=== PATIENT | male | born 1985 | race Caucasian/White ===

== ENCOUNTER 2022-10-12 20:44 | Inpatient (IN) | payer BC, SELFPAY ==
[~2022-10-12] VITALS: Ht 190.5 cm; Wt 115.2 kg
[2022-10-12] MEDS ORDERED: NS 1,000 ML IV ONE (21:05)
[2022-10-12 21:16] LABS: BASO # 0.1 10^3/uL (0.0-0.2); EOS % 0.5 % (0.0-3.0); HEMATOCRIT 44.8 % (42.0-52.0); HEMOGLOBIN 15.4 g/dl (13.5-17.5); LYMPH # 1.2 10^3/uL (1.5-5.0); LYMPH % 14.9 % (24.0-44.0); MEAN CORPUSCULAR HEMOGLOBIN 34.4 pg (27.0-33.0); MEAN CORPUSCULAR HGB CONC 34.4 g/dl (32.0-36.5); MONO # 0.9 10^3/uL (0.0-0.8); MONO % 11.4 % (2.0-8.0); NEUTROPHILS # 5.8 10^3/uL (1.5-8.5); NEUTROPHILS % 71.7 % (36.0-66.0); PLATELET COUNT, AUTOMATED 203 10^3/uL (150-450); RED BLOOD COUNT 4.48 10^6/uL (4.30-6.10); WHITE BLOOD COUNT 8.1 10^3/uL (4.0-10.0)
[2022-10-12 21:18] LABS: VENOUS BASE EXCESS -1.5 (-2.0-2.0); VENOUS HCO3 23.8 MEQ/L (23.0-27.0); VENOUS O2 SATURATION 66.5 % (60.0-80.0); VENOUS PARTIAL PRESSURE CO2 42.2 mmHg (38.0-50.0); VENOUS PARTIAL PRESSURE O2 35.4 mmHg (30.0-50.0); VENOUS STANDARD HCO3 22.4 MEQ/L; VENOUS TOTAL CO2 25.1 MEQ/L (24.0-28.0)
[2022-10-12 21:35] LABS: ALBUMIN 4.1 G/DL (3.2-5.2); ALKALINE PHOSPHATASE 128 U/L (46-116); ALT/SGPT 144 U/L (7.0-40); AST/SGOT 340 U/L (<34); BILIRUBIN,DIRECT 0.7 MG/DL (<0.4); BILIRUBIN,TOTAL 1.3 MG/DL (0.3-1.2); BLOOD UREA NITROGEN 8 MG/DL (9-23); CALCIUM LEVEL 9.7 MG/DL (8.5-10.1); CARBON DIOXIDE LEVEL 24 MMOL/L (20-31); CHLORIDE LEVEL 93 MMOL/L (98-107); CREATININE FOR GFR 1.16 MG/DL (0.70-1.30); GLOMERULAR FILTRATION RATE > 60.0 (>60); GLUCOSE, FASTING 83 MG/DL (60-100); PHOSPHORUS LEVEL 1.9 MG/DL (2.5-4.9); POTASSIUM SERUM 3.2 MMOL/L (3.5-5.1); SODIUM LEVEL 137 MMOL/L (136-145); TOTAL PROTEIN 7.7 G/DL (5.7-8.2)
[2022-10-12] MEDS ORDERED: LR 1,000 ML IV ONE (21:45)
[2022-10-12 21:53] LABS: MAGNESIUM LEVEL 1.6 MG/DL (1.8-2.4)
[2022-10-12] MEDS ORDERED: NEUTRA-PHOS 1.5 GM PACKET PO STA (22:07)
[2022-10-12] MEDS ORDERED: MAG SULF 1GM/100ML (MAG RUN) 1 GM in IV 1 EA IV ONE ×2 (22:10→23:00)
[2022-10-12] MEDS ORDERED: POTASSIUM CHLORIDE 10MEQ SR TABLET PO ONE (22:10)
[2022-10-12] MEDS ORDERED: KETOROLAC 30 MG/ML 1ML VIAL IV ONE (22:25)
[2022-10-12 22:44] LABS: HEPATITIS B SURFACE ANTIGEN NEGATIVE (NEGATIVE)
[2022-10-12 23:04] LABS: HEPATITIS B CORE ANTIBODY IGM NEGATIVE (NEGATIVE); HEPATITIS C VIRUS ABY INDEX 0.1 INDEX (<0.8)
[2022-10-12 23:05] LABS: RSV AMPLIFICATION NEGATIVE (NEGATIVE)
[2022-10-12] MEDS ORDERED: hydrALAZINE 20MG/ML 1ML VIAL IV STA (23:31)
[2022-10-12] MEDS ORDERED: MORPHINE 4 MG/ML 1ML VIAL IV ONE (23:45)
[2022-10-13] VITALS (62 sets, daily range): BP systolic 101–135; BP diastolic 56–82
[2022-10-13] MEDS ORDERED: NS 1,000 ML IV ONE ×2 (00:45→03:15)
[2022-10-13 01:30] LABS: APPEARANCE, URINE CLEAR (CLEAR); BACTERIA, URINE AUTO NEGATIVE (NEGATIVE); BILIRUBIN, URINE AUTO NEGATIVE (NEGATIVE); BLOOD, URINE BLOOD 2+ (NEGATIVE); COLOR, URINE YELLOW (YELLOW); GLUCOSE, URINE (UA) AUTO NEGATIVE (NEGATIVE); KETONE, URINE AUTO 1+ mg/dL (NEGATIVE); LEUKOCYTE ESTERASE, URINE AUTO NEGATIVE (NEGATIVE); MUCUS, URINE SMALL (NEGATIVE); NITRITE, URINE AUTO NEGATIVE (NEGATIVE); PROTEIN, URINE AUTO 2+ mg/dL (NEGATIVE); RBC, URINE AUTO 0 /HPF (0-3); SPECIFIC GRAVITY URINE AUTO 1.015 (1.002-1.035); SQUAMOUS EPITHELIAL CELL UR AU 0 /HPF (0-6); WBC, URINE AUTO 6 /HPF (0-3)
[2022-10-13 01:41] LABS: AMPHETAMINES LEVEL URINE NEGATIVE (NEGATIVE); BARBITURATES URINE NEGATIVE (NEGATIVE); CANNABINOIDS URINE NEGATIVE (NEGATIVE); METHADONE URINE NEGATIVE (NEGATIVE); PHENCYCLIDINE URINE NEGATIVE (NEGATIVE)
[2022-10-13 01:46] LABS: BENZODIAZEPINES URINE POSITIVE (NEGATIVE); COCAINE METABOLITE URINE POSITIVE (NEGATIVE); OPIATES URINE POSITIVE (NEGATIVE)
[2022-10-13] MEDS ORDERED: LORazepam 2 MG/ML 1ML VIAL IM STA (01:47)
[2022-10-13] MEDS ORDERED: MIDAZOLAM INJ 2MG/2ML VIAL IV STA ×2 (01:50→03:20)
[2022-10-13] MEDS ORDERED: levETIRAcetam INJection 1,500 MG in D5W 100 ML IV ONE (01:50)
[2022-10-13] MEDS ORDERED: MIDAZOLAM INJ 2MG/2ML VIAL As Ordered ONE (01:51)
[2022-10-13] MEDS ORDERED: TADA20TA PO (01:56)
[2022-10-13] MEDS ORDERED: VYVA40CA3 PO (01:56)
[2022-10-13] MEDS ORDERED: BUPR150T12 PO (01:56)
[2022-10-13] MEDS ORDERED: ETOMIDATE INJ 20MG/10ML VIAL IV STA (02:00)
[2022-10-13] MEDS ORDERED: ROCURONIUM BROMIDE 50MG/5ML VIAL IV SCH (02:00)
[2022-10-13] MEDS ORDERED: HOME MED LIST COMPLETE! XX SCH (02:00)
[2022-10-13] MEDS ORDERED: MIDAZOLAM 100MG/100ML-0.9%NACL 100 MG in IV 1 EA IV SCH (02:05)
[2022-10-13] MEDS ORDERED: VERAPAMIL 5MG/2ML VIAL IV STA (02:10)
[2022-10-13] MEDS: MIDAZOLAM 100MG/100ML-0.9%NACL 100 MG in IV 1 EA IV SCH ×2 (02:13→13:36)
[2022-10-13] MEDS: propofoL 1,000 MG in IV 1 EA IV SCH ×7 (02:56→18:03)
[2022-10-13] MEDS ORDERED: diltiaZEM 125 MG in NS 100 ML IV SCH ×4 (03:00→10:00)
[2022-10-13 03:02] LABS: ABG HCO3 19.4 MEQ/L (22.0-26.0); ABG PARTIAL PRESSURE CO2 46.5 mmHg (35.0-45.0); ABG PARTIAL PRESSURE O2 127.7 mmHg (75.0-100.0); ABG STANDARD HCO3 18.2 MEQ/L (22.0-26.0); ABG TOTAL CO2 20.9 MEQ/L (22.0-29.0)
[2022-10-13 03:05] LABS: ABG pH (ARTERIAL) 7.239 UNITS (7.350-7.450)
[2022-10-13] MEDS ORDERED: LORazepam 2 MG/ML 1ML VIAL IV STA (03:19)
[2022-10-13] MEDS ORDERED: DIGOXIN INJ 0.5 MG/2 ML AMP IV STA (03:32)
[2022-10-13] MEDS ORDERED: FENTANYL DRIP LOCK BOX KEY 1 EACH XX PRN (03:50)
[2022-10-13] MEDS ORDERED: PHENYTOIN INJ 250MG/5ML VIAL As Ordered ONE ×2 (03:54→03:55)
[2022-10-13] MEDS ORDERED: PHENYTOIN INJection 2,000 MG in NS 250 ML IV ONE (04:00)
[2022-10-13] MEDS ORDERED: ADENOSINE 6MG 2ML INJECTION IV STA ×2 (04:20)
[2022-10-13] MEDS ORDERED: PHENYTOIN INJection 1,000 MG in NS 100 ML IV ONE ×2 (04:25→05:00)
[2022-10-13 04:43] LABS: HEMATOCRIT 38.9 % (42.0-52.0); HEMOGLOBIN 13.6 g/dl (13.5-17.5); MEAN CORPUSCULAR HEMOGLOBIN 34.3 pg (27.0-33.0); PLATELET COUNT, AUTOMATED 156 10^3/uL (150-450); RED BLOOD COUNT 3.97 10^6/uL (4.30-6.10); WHITE BLOOD COUNT 9.7 10^3/uL (4.0-10.0)
[2022-10-13] MEDS: fentaNYL CITRATE/NaCl 1,000 MCG in IV 1 EA IV SCH ×2 (04:48→19:17)
[2022-10-13 04:53] LABS: INR 0.98; PROTHROMBIN TIME 13.2 SECONDS (12.5-14.5)
[2022-10-13] MEDS: NS 1,000 ML IV SCH ×4 (05:18→23:46)
[2022-10-13 05:28] LABS: ALBUMIN 3.1 G/DL (3.2-5.2); ALKALINE PHOSPHATASE 98 U/L (46-116); ALT/SGPT 110 U/L (7.0-40); AST/SGOT 276 U/L (<34); BILIRUBIN,TOTAL 1.7 MG/DL (0.3-1.2); BLOOD UREA NITROGEN 6 MG/DL (9-23); CALCIUM LEVEL 7.9 MG/DL (8.5-10.1); CARBON DIOXIDE LEVEL 25 MMOL/L (20-31); CHLORIDE LEVEL 99 MMOL/L (98-107); CPK CREATINE PHOSPHOKINASE 5332 U/L (46-171); CREATININE FOR GFR 1.22 MG/DL (0.70-1.30); GLOMERULAR FILTRATION RATE > 60.0 (>60); GLUCOSE, FASTING 143 MG/DL (60-100); MAGNESIUM LEVEL 1.8 MG/DL (1.8-2.4); POTASSIUM SERUM 2.9 MMOL/L (3.5-5.1); SODIUM LEVEL 138 MMOL/L (136-145); TOTAL PROTEIN 5.9 G/DL (5.7-8.2)
[2022-10-13] MEDS ORDERED: DIGOXIN INJ 0.5 MG/2 ML AMP IV ONE (06:00)
[2022-10-13 06:16] LABS: ABG BASE EXCESS 2.2 (-2.0-2.0); ABG HCO3 25.3 MEQ/L (22.0-26.0); ABG O2 SATURATION 97.4 % (95.0-99.0); ABG PARTIAL PRESSURE CO2 34.9 mmHg (35.0-45.0); ABG PARTIAL PRESSURE O2 93.4 mmHg (75.0-100.0); ABG STANDARD HCO3 26.4 MEQ/L (22.0-26.0); ABG TOTAL CO2 26.4 MEQ/L (22.0-29.0); ABG pH (ARTERIAL) 7.479 UNITS (7.350-7.450)
[2022-10-13 07:47] LABS: LDH LACTATE DEHYDROGENASE 522 U/L (120-246)
[2022-10-13] MEDS ORDERED: POTASSIUM PHOSPHATE INJ 15 MMOL in D5W 250 ML IV ONE (08:00)
[2022-10-13] MEDS: MAG SULF 1GM/100ML (MAG RUN) 1 GM in IV 1 EA IV SCH ×2 (08:41→09:51)
[2022-10-13] MEDS ORDERED: levETIRAcetam INJection 1,000 MG in D5W 100 ML IV SCH ×2 (09:00)
[2022-10-13] MEDS: AZTREONAM 1 GM in D5W MINI-BAG PLUS 50 ML IV SCH ×2 (09:58→16:36)
[2022-10-13] MEDS: PANTOPRAZOLE 40MG VIAL IV SCH (09:58)
[2022-10-13] MEDS: ASPIRIN 325 MG TAB NG SCH (09:58)
[2022-10-13] MEDS: CHLORHEXIDINE GLUCONATE 0.12 % 15ML UDC (PERIDEX ORAL RINSE) MT SCH ×2 (09:58→20:27)
[2022-10-13] MEDS: PHENYTOIN 100MG/2ML VIAL IV SCH ×2 (12:46→20:28)
[2022-10-13] MEDS ORDERED: FUROSEMIDE 20MG/2ML VIAL IV ONE (13:15)
[2022-10-13] MEDS ORDERED: KCL 10MEQ/100ML SWI (KRUN) 10 MEQ in IV 1 EA IV ONE (15:00)
[2022-10-13] MEDS: levETIRAcetam INJection 1,000 MG in D5W 100 ML IV SCH (15:21)
[2022-10-13 20:36] LABS: POTASSIUM SERUM 3.5 MMOL/L (3.5-5.1)
[2022-10-13 21:43] LABS: MAGNESIUM LEVEL 2.1 MG/DL (1.8-2.4)
[2022-10-13] MEDS: HEPARIN SOD (PORCINE) 5000UNITS/ML 1ML VIAL/SYRINGE SC SCH (22:06)
[2022-10-14] VITALS (36 sets, daily range): BP systolic 107–139; BP diastolic 60–88; O2SAT 89–98
[2022-10-14] MEDS: AZTREONAM 1 GM in D5W MINI-BAG PLUS 50 ML IV SCH ×3 (01:21→16:03)
[2022-10-14] MEDS: PHENYTOIN 100MG/2ML VIAL IV SCH ×3 (03:05→20:41)
[2022-10-14] MEDS: levETIRAcetam INJection 1,000 MG in D5W 100 ML IV SCH ×2 (03:05→15:08)
[2022-10-14] MEDS: MIDAZOLAM 100MG/100ML-0.9%NACL 100 MG in IV 1 EA IV SCH ×2 (04:12→16:03)
[2022-10-14 06:08] LABS: ALBUMIN 2.7 G/DL (3.2-5.2); BILIRUBIN,TOTAL 1.7 MG/DL (0.3-1.2); CALCIUM LEVEL 7.2 MG/DL (8.5-10.1); CREATININE FOR GFR 4.29 MG/DL (0.70-1.30); GLOMERULAR FILTRATION RATE 16.5 (>60); MAGNESIUM LEVEL 2.1 MG/DL (1.8-2.4); POTASSIUM SERUM 3.4 MMOL/L (3.5-5.1); PROLACTIN 24.21 NG/ML (2.1-17.7); THYROID STIMULATING HORMONE 0.791 uIU/ML (0.55-4.78); TOTAL PROTEIN 5.5 G/DL (5.7-8.2)
[2022-10-14 06:10] LABS: HEMATOCRIT 40.3 % (42.0-52.0); HEMOGLOBIN 13.3 g/dl (13.5-17.5); MEAN CORPUSCULAR HEMOGLOBIN 34.7 pg (27.0-33.0); MEAN CORPUSCULAR VOLUME 105.2 fl (80.0-96.0); PLATELET COUNT, AUTOMATED 139 10^3/uL (150-450); RED BLOOD COUNT 3.83 10^6/uL (4.30-6.10); WHITE BLOOD COUNT 9.4 10^3/uL (4.0-10.0)
[2022-10-14 06:10] LABS: ABG BASE EXCESS -2.6 (-2.0-2.0); ABG O2 SATURATION 96.1 % (95.0-99.0); ABG PARTIAL PRESSURE CO2 33.2 mmHg (35.0-45.0); ABG PARTIAL PRESSURE O2 79.1 mmHg (75.0-100.0); ABG STANDARD HCO3 22.3 MEQ/L (22.0-26.0); ABG pH (ARTERIAL) 7.419 UNITS (7.350-7.450)
[2022-10-14] MEDS: HEPARIN SOD (PORCINE) 5000UNITS/ML 1ML VIAL/SYRINGE SC SCH ×3 (06:20→21:39)
[2022-10-14] MEDS: NS 1,000 ML IV SCH ×3 (06:20→21:38)
[2022-10-14] MEDS: propofoL 1,000 MG in IV 1 EA IV SCH ×2 (07:51→11:22)
[2022-10-14] MEDS: CHLORHEXIDINE GLUCONATE 0.12 % 15ML UDC (PERIDEX ORAL RINSE) MT SCH (08:48)
[2022-10-14] MEDS: PANTOPRAZOLE 40MG VIAL IV SCH (08:48)
[2022-10-14] MEDS: ASPIRIN 325 MG TAB NG SCH (08:48)
[2022-10-14] MEDS ORDERED: MIDAZOLAM INJ 2MG/2ML VIAL IV PRN (11:55)
[2022-10-14] MEDS ORDERED: LORazepam 2 MG/ML 1ML VIAL IV STA (20:06)
[2022-10-14] MEDS ORDERED: LORazepam 2 MG TAB PO PRN (20:10)
[2022-10-14] MEDS ORDERED: THIAMINE 200MG 2ML VIAL IM ONE (20:10)
[2022-10-14] MEDS: LORazepam 2 MG/ML 1ML VIAL IV PRN (22:58)
[2022-10-15] VITALS (9 sets, daily range): BP systolic 120–145; BP diastolic 63–89
[2022-10-15] MEDS: AZTREONAM 1 GM in D5W MINI-BAG PLUS 50 ML IV SCH ×2 (01:45→09:26)
[2022-10-15] MEDS: levETIRAcetam INJection 1,000 MG in D5W 100 ML IV SCH ×2 (03:16→15:06)
[2022-10-15] MEDS: PHENYTOIN 100MG/2ML VIAL IV SCH ×3 (04:47→20:58)
[2022-10-15 04:58] LABS: BASO # 0.1 10^3/uL (0.0-0.2); BASO % 0.6 % (0.0-1.0); EOS # 0.2 10^3/uL (0.0-0.5); EOS % 2.4 % (0.0-3.0); HEMATOCRIT 36.1 % (42.0-52.0); HEMOGLOBIN 12.5 g/dl (13.5-17.5); LYMPH % 9.8 % (24.0-44.0); MEAN CORPUSCULAR HEMOGLOBIN 35.3 pg (27.0-33.0); MEAN CORPUSCULAR HGB CONC 34.6 g/dl (32.0-36.5); MONO % 9.7 % (2.0-8.0); NEUTROPHILS # 7.8 10^3/uL (1.5-8.5); NEUTROPHILS % 77.1 % (36.0-66.0); PLATELET COUNT, AUTOMATED 146 10^3/uL (150-450); RED BLOOD COUNT 3.54 10^6/uL (4.30-6.10); WHITE BLOOD COUNT 10.1 10^3/uL (4.0-10.0)
[2022-10-15 05:34] LABS: ALBUMIN 2.6 G/DL (3.2-5.2); ALKALINE PHOSPHATASE 86 U/L (46-116); ALT/SGPT 113 U/L (7.0-40); AST/SGOT 602 U/L (<34); BILIRUBIN,TOTAL 2.1 MG/DL (0.3-1.2); BLOOD UREA NITROGEN 16 MG/DL (9-23); CALCIUM LEVEL 7.4 MG/DL (8.5-10.1); CARBON DIOXIDE LEVEL 24 MMOL/L (20-31); CHLORIDE LEVEL 101 MMOL/L (98-107); CREATININE FOR GFR 4.63 MG/DL (0.70-1.30); GLOMERULAR FILTRATION RATE 15.1 (>60); GLUCOSE, FASTING 81 MG/DL (60-100); POTASSIUM SERUM 3.3 MMOL/L (3.5-5.1); SODIUM LEVEL 136 MMOL/L (136-145); TOTAL PROTEIN 5.4 G/DL (5.7-8.2)
[2022-10-15] MEDS: NS 1,000 ML IV SCH ×3 (05:46→22:28)
[2022-10-15] MEDS: HEPARIN SOD (PORCINE) 5000UNITS/ML 1ML VIAL/SYRINGE SC SCH ×3 (05:52→21:25)
[2022-10-15] MEDS ORDERED: KCL 20MEQ IN 100ML SWI (KRUN) 20 MEQ in IV 1 EA IV ONE ×2 (07:00)
[2022-10-15] MEDS ORDERED: THIAMINE 200MG 2ML VIAL IM SCH (09:00)
[2022-10-15] MEDS ORDERED: DOXYCYCLINE HYCLATE 100MG TABLET PO SCH (09:00)
[2022-10-15] MEDS: FOLIC ACID 1MG TAB PO SCH (09:26)
[2022-10-15] MEDS: MULTIVITAMINS/MINERALS THERAP 1 TAB PO SCH (09:26)
[2022-10-15] MEDS: PANTOPRAZOLE 40MG VIAL IV SCH (09:26)
[2022-10-15] MEDS: ASPIRIN 325 MG TAB NG SCH (09:26)
[2022-10-15] MEDS ORDERED: POTASSIUM CHLORIDE 10MEQ SR TABLET PO ONE (09:35)
[2022-10-15] MEDS: LORazepam 2 MG/ML 1ML VIAL IV PRN (10:36)
[2022-10-15 13:27] LABS: CPK CREATINE PHOSPHOKINASE > 39000 U/L (46-171)
[2022-10-15] MEDS ORDERED: PILL CUTTER 1 EACH XX PRN (20:15)
[2022-10-15 20:33] LABS: HEMATOCRIT 39.6 % (42.0-52.0); HEMOGLOBIN 13.7 g/dl (13.5-17.5); MEAN CORPUSCULAR HEMOGLOBIN 34.6 pg (27.0-33.0); MEAN CORPUSCULAR HGB CONC 34.6 g/dl (32.0-36.5); PLATELET COUNT, AUTOMATED 151 10^3/uL (150-450); RED BLOOD COUNT 3.96 10^6/uL (4.30-6.10); WHITE BLOOD COUNT 10.1 10^3/uL (4.0-10.0)
[2022-10-15] MEDS: LINEZOLID 600MG TABLET (ZYVOX) PO SCH (21:24)
[2022-10-16] VITALS (10 sets, daily range): BP systolic 133–168; BP diastolic 68–98
[2022-10-16 02:19] LABS: HEMATOCRIT 35.3 % (42.0-52.0); HEMOGLOBIN 12.1 g/dl (13.5-17.5); MEAN CORPUSCULAR HEMOGLOBIN 34.3 pg (27.0-33.0); MEAN CORPUSCULAR HGB CONC 34.3 g/dl (32.0-36.5); PLATELET COUNT, AUTOMATED 163 10^3/uL (150-450); RED BLOOD COUNT 3.53 10^6/uL (4.30-6.10); WHITE BLOOD COUNT 9.5 10^3/uL (4.0-10.0)
[2022-10-16] MEDS: PHENYTOIN 100MG/2ML VIAL IV SCH (03:48)
[2022-10-16] MEDS: levETIRAcetam INJection 1,000 MG in D5W 100 ML IV SCH (03:48)
[2022-10-16] MEDS: NS 1,000 ML IV SCH ×4 (05:07→17:57)
[2022-10-16] MEDS: HEPARIN SOD (PORCINE) 5000UNITS/ML 1ML VIAL/SYRINGE SC SCH ×3 (05:08→20:29)
[2022-10-16 05:13] LABS: HEMATOCRIT 35.8 % (42.0-52.0); HEMOGLOBIN 12.3 g/dl (13.5-17.5); MEAN CORPUSCULAR HEMOGLOBIN 34.5 pg (27.0-33.0); MEAN CORPUSCULAR HGB CONC 34.4 g/dl (32.0-36.5); MEAN CORPUSCULAR VOLUME 100.3 fl (80.0-96.0); PLATELET COUNT, AUTOMATED 164 10^3/uL (150-450); RED BLOOD COUNT 3.57 10^6/uL (4.30-6.10); WHITE BLOOD COUNT 8.4 10^3/uL (4.0-10.0)
[2022-10-16 05:39] LABS: CREATININE FOR GFR 2.72 MG/DL (0.70-1.30); GLOMERULAR FILTRATION RATE 27.9 (>60); POTASSIUM SERUM 3.3 MMOL/L (3.5-5.1)
[2022-10-16] MEDS ORDERED: POTASSIUM CHLORIDE 10MEQ SR TABLET PO ONE ×2 (06:00→08:20)
[2022-10-16] MEDS: FOLIC ACID 1MG TAB PO SCH (10:39)
[2022-10-16] MEDS: MULTIVITAMINS/MINERALS THERAP 1 TAB PO SCH (10:39)
[2022-10-16] MEDS: ASPIRIN 325 MG TAB NG SCH (10:39)
[2022-10-16] MEDS: levETIRAcetam 250MG TABLET (KEPPRA) PO SCH ×2 (10:40→20:28)
[2022-10-16] MEDS: PANTOPRAZOLE 40MG VIAL IV SCH (10:40)
[2022-10-16] MEDS: LINEZOLID 600MG TABLET (ZYVOX) PO SCH ×2 (10:40→20:28)
[2022-10-16] MEDS: PHENYTOIN ER 100 MG CAP PO SCH ×2 (10:40→20:28)
[2022-10-16] MEDS ORDERED: oxyCODONE 5MG TAB PO PRN (10:55)
[2022-10-16] MEDS: THIAMINE 100 MG TAB PO SCH (11:41)
[2022-10-16] MEDS: ISOSORBIDE DIN (ISORDIL) 10MG TAB PO SCH ×2 (11:43→17:00)
[2022-10-16] MEDS ORDERED: CitaloPRAM (CeleXA) 20 MG TAB PO ONE (17:15)
[2022-10-16] MEDS ORDERED: traZODone 50 MG TAB PO PRN (17:15)
[2022-10-16] MEDS: NEOSPORIN TOP OINT 15GM TOP SCH (20:29)
[2022-10-16] MEDS ORDERED: levETIRAcetam 250MG TABLET (KEPPRA) PO SCH (21:00)
[2022-10-17] MEDS: NS 1,000 ML IV SCH ×4 (00:49→21:40)
[2022-10-17] MEDS: ISOSORBIDE DIN (ISORDIL) 10MG TAB PO SCH (05:55)
[2022-10-17] MEDS: HEPARIN SOD (PORCINE) 5000UNITS/ML 1ML VIAL/SYRINGE SC SCH ×3 (05:56→20:48)
[2022-10-17 05:57] VITALS: BP 166/75
[2022-10-17 06:00] VITALS: BP 166/75
[2022-10-17 06:52] LABS: CALCIUM LEVEL 7.4 MG/DL (8.5-10.1); CREATININE FOR GFR 1.68 MG/DL (0.70-1.30); GLOMERULAR FILTRATION RATE 48.7 (>60); POTASSIUM SERUM 3.2 MMOL/L (3.5-5.1)
[2022-10-17] MEDS: CitaloPRAM (CeleXA) 20 MG TAB PO SCH (08:46)
[2022-10-17] MEDS: PANTOPRAZOLE 40MG VIAL IV SCH (08:46)
[2022-10-17] MEDS: LINEZOLID 600MG TABLET (ZYVOX) PO SCH ×2 (08:46→20:46)
[2022-10-17] MEDS: ASPIRIN 81MG CHEW TABLET PO SCH (08:46)
[2022-10-17] MEDS: MULTIVITAMINS/MINERALS THERAP 1 TAB PO SCH (08:46)
[2022-10-17] MEDS: THIAMINE 100 MG TAB PO SCH (08:46)
[2022-10-17] MEDS: FOLIC ACID 1MG TAB PO SCH (08:46)
[2022-10-17] MEDS: PHENYTOIN ER 100 MG CAP PO SCH ×2 (08:46→20:47)
[2022-10-17] MEDS: levETIRAcetam 250MG TABLET (KEPPRA) PO SCH ×2 (08:47→20:46)
[2022-10-17] MEDS: NEOSPORIN TOP OINT 15GM TOP SCH ×2 (08:47→20:48)
[2022-10-17] MEDS: LORazepam 2 MG/ML 1ML VIAL IV PRN (08:55)
[2022-10-17] MEDS ORDERED: POTASSIUM CHLORIDE 10MEQ SR TABLET PO ONE (09:00)
[2022-10-17] MEDS ORDERED: THIAMINE 200MG 2ML VIAL IV SCH (09:00)
[2022-10-17] MEDS ORDERED: THIAMINE 100 MG TAB PO SCH (09:00)
[2022-10-17] MEDS: ISOSORBIDE DIN. (ISORDIL) 20 MG TAB PO SCH ×2 (12:47→20:57)
[2022-10-17 14:00] VITALS: BP 147/83
[2022-10-17] MEDS ORDERED: LORazepam 2 MG/ML 1ML VIAL IV STA (18:17)
[2022-10-17] MEDS ORDERED: diazePAM 5MG TABLET PO PRN (18:20)
[2022-10-17] MEDS ORDERED: DIAZ5TAB PO (18:22)
[2022-10-17] MEDS ORDERED: ZOLP10TA2 PO (18:22)
[2022-10-17] MEDS ORDERED: LIDOCAINE VISCOUS 2% SOLN 15ML UDC SS PRN (18:25)
[2022-10-17 20:00] VITALS: BP 151/100
[2022-10-17] MEDS: BENZOCAINE 10% 9GM TUBE (ANBESOL) TOP SCH (20:49)
[2022-10-17 21:00] VITALS: BP 164/89
[2022-10-17] MEDS ORDERED: zolPIDEM TARTRATE 5 MG TAB PO SCH (21:00)
[2022-10-17 23:56] VITALS: BP 142/76
[2022-10-18] MEDS: HEPARIN SOD (PORCINE) 5000UNITS/ML 1ML VIAL/SYRINGE SC SCH ×3 (05:29→21:16)
[2022-10-18 05:36] VITALS: BP 170/100
[2022-10-18 05:37] VITALS: BP 170/100
[2022-10-18] MEDS: ISOSORBIDE DIN. (ISORDIL) 20 MG TAB PO SCH ×2 (05:52→08:27)
[2022-10-18] MEDS: NS 1,000 ML IV SCH ×4 (06:11→23:52)
[2022-10-18 06:15] LABS: BLOOD UREA NITROGEN 7 MG/DL (9-23); CARBON DIOXIDE LEVEL 28 MMOL/L (20-31); CHLORIDE LEVEL 104 MMOL/L (98-107); CREATININE FOR GFR 1.36 MG/DL (0.70-1.30); GLOMERULAR FILTRATION RATE > 60.0 (>60); GLUCOSE, FASTING 80 MG/DL (60-100); POTASSIUM SERUM 3.3 MMOL/L (3.5-5.1); SODIUM LEVEL 138 MMOL/L (136-145)
[2022-10-18] MEDS: LORazepam 2 MG/ML 1ML VIAL IV PRN ×3 (08:26→23:15)
[2022-10-18] MEDS: PANTOPRAZOLE 40MG VIAL IV SCH (08:26)
[2022-10-18] MEDS: FOLIC ACID 1MG TAB PO SCH (08:27)
[2022-10-18] MEDS: MULTIVITAMINS/MINERALS THERAP 1 TAB PO SCH (08:27)
[2022-10-18] MEDS: levETIRAcetam 250MG TABLET (KEPPRA) PO SCH ×2 (08:28→20:50)
[2022-10-18] MEDS: ASPIRIN 81MG CHEW TABLET PO SCH (08:28)
[2022-10-18] MEDS: CitaloPRAM (CeleXA) 20 MG TAB PO SCH (08:28)
[2022-10-18] MEDS: LINEZOLID 600MG TABLET (ZYVOX) PO SCH ×2 (08:28→21:12)
[2022-10-18] MEDS: PHENYTOIN ER 100 MG CAP PO SCH ×2 (08:29→20:50)
[2022-10-18] MEDS: NEOSPORIN TOP OINT 15GM TOP SCH ×2 (08:30→21:12)
[2022-10-18] MEDS: THIAMINE 100 MG TAB PO SCH (08:31)
[2022-10-18] MEDS: BENZOCAINE 10% 9GM TUBE (ANBESOL) TOP SCH ×2 (08:33→21:00)
[2022-10-18] MEDS ORDERED: POTASSIUM CHLORIDE 10MEQ SR TABLET PO ONE (11:00)
[2022-10-18 12:00] VITALS: BP 209/130
[2022-10-18] MEDS ORDERED: diazePAM 10 MG TAB PO ONE (15:45)
[2022-10-18] MEDS ORDERED: ISOSORBIDE DIN. (ISORDIL) 20 MG TAB PO ONE (15:45)
[2022-10-18] MEDS ORDERED: **hydrALAZINE** 50 MG TAB PO ONE (15:45)
[2022-10-18] MEDS ORDERED: ISOSORBIDE DIN. (ISORDIL) 30 MG TAB PO SCH (16:00)
[2022-10-18] MEDS: NITROGLYCERIN 2% OINT 1 GM *U/D* PKT TOP SCH ×2 (16:38→20:51)
[2022-10-18 17:21] VITALS: BP 155/97
[2022-10-18] MEDS: diazePAM 10 MG TAB PO SCH (20:49)
[2022-10-18 20:51] VITALS: BP 160/100
[2022-10-18 21:00] VITALS: BP 160/100
[2022-10-18 23:43] LABS: AMPHETAMINES LEVEL URINE NEGATIVE (NEGATIVE); BARBITURATES URINE NEGATIVE (NEGATIVE); COCAINE METABOLITE URINE NEGATIVE (NEGATIVE)
[2022-10-18 23:44] LABS: CANNABINOIDS URINE NEGATIVE (NEGATIVE); METHADONE URINE NEGATIVE (NEGATIVE); OPIATES URINE NEGATIVE (NEGATIVE); PHENCYCLIDINE URINE NEGATIVE (NEGATIVE)
[2022-10-18 23:45] LABS: BENZODIAZEPINES URINE POSITIVE (NEGATIVE)
[2022-10-19] MEDS: NS 1,000 ML IV SCH ×2 (00:08→06:04)
[2022-10-19] MEDS: NITROGLYCERIN 2% OINT 1 GM *U/D* PKT TOP SCH (03:16)
[2022-10-19 06:00] VITALS: BP 184/113
[2022-10-19] MEDS: HEPARIN SOD (PORCINE) 5000UNITS/ML 1ML VIAL/SYRINGE SC SCH ×3 (06:03→21:20)
[2022-10-19 06:44] LABS: BLOOD UREA NITROGEN 7 MG/DL (9-23); CALCIUM LEVEL 8.3 MG/DL (8.5-10.1); CARBON DIOXIDE LEVEL 28 MMOL/L (20-31); CHLORIDE LEVEL 103 MMOL/L (98-107); CREATININE FOR GFR 1.09 MG/DL (0.70-1.30); GLOMERULAR FILTRATION RATE > 60.0 (>60); GLUCOSE, FASTING 76 MG/DL (60-100); POTASSIUM SERUM 3.1 MMOL/L (3.5-5.1); SODIUM LEVEL 140 MMOL/L (136-145)
[2022-10-19] MEDS: LORazepam 2 MG/ML 1ML VIAL IV PRN ×2 (06:56→23:06)
[2022-10-19] MEDS ORDERED: atenoloL 50 MG TAB PO ONE (08:00)
[2022-10-19] MEDS: PANTOPRAZOLE 40MG VIAL IV SCH (08:11)
[2022-10-19] MEDS: LINEZOLID 600MG TABLET (ZYVOX) PO SCH ×2 (08:12→21:25)
[2022-10-19] MEDS: MULTIVITAMINS/MINERALS THERAP 1 TAB PO SCH (08:12)
[2022-10-19] MEDS: PHENYTOIN ER 100 MG CAP PO SCH ×2 (08:12→21:20)
[2022-10-19] MEDS: FOLIC ACID 1MG TAB PO SCH (08:12)
[2022-10-19] MEDS: THIAMINE 100 MG TAB PO SCH (08:13)
[2022-10-19] MEDS: ASPIRIN 81MG CHEW TABLET PO SCH (08:13)
[2022-10-19] MEDS: CitaloPRAM (CeleXA) 20 MG TAB PO SCH (08:13)
[2022-10-19] MEDS: levETIRAcetam 250MG TABLET (KEPPRA) PO SCH ×2 (08:13→21:21)
[2022-10-19] MEDS: NEOSPORIN TOP OINT 15GM TOP SCH ×2 (08:15→21:27)
[2022-10-19] MEDS: BENZOCAINE 10% 9GM TUBE (ANBESOL) TOP SCH ×2 (08:15→21:27)
[2022-10-19] MEDS ORDERED: diazePAM 10 MG TAB PO ONE (09:15)
[2022-10-19] MEDS ORDERED: ASPI81CH8 PO (09:25)
[2022-10-19] MEDS ORDERED: DIAZ10TA2 PO (09:25)
[2022-10-19] MEDS ORDERED: Benzocaine Gel TOP (09:25)
[2022-10-19] MEDS ORDERED: DILA100C PO (09:25)
[2022-10-19] MEDS ORDERED: LINE1TAB6 PO (09:25)
[2022-10-19] MEDS ORDERED: CELE20TA PO (09:25)
[2022-10-19] MEDS ORDERED: KEPP250T5 PO (09:25)
[2022-10-19 10:00] VITALS: BP_SYST 154; BP_SYST 174; BP_DIAS 121; BP_DIAS 92
[2022-10-19] MEDS: POTASSIUM CHLORIDE 10MEQ SR TABLET PO SCH ×2 (10:56→21:20)
[2022-10-19] MEDS ORDERED: **hydrALAZINE** 50 MG TAB PO SCH (12:00)
[2022-10-19] MEDS ORDERED: cloNIDine 0.2 MG TAB PO SCH (12:00)
[2022-10-19 14:00] VITALS: BP 162/106
[2022-10-19 17:54] VITALS: BP 169/107
[2022-10-19] MEDS: **hydrALAZINE** 50 MG TAB PO SCH ×2 (17:59→23:27)
[2022-10-19 21:00] VITALS: BP 167/107
[2022-10-19] MEDS: atenoloL 50 MG TAB PO SCH (21:25)
[2022-10-19] MEDS: diazePAM 10 MG TAB PO SCH (21:25)
[2022-10-20 02:00] VITALS: BP 149/93
[2022-10-20 06:00] VITALS: BP 158/95
[2022-10-20] MEDS: HEPARIN SOD (PORCINE) 5000UNITS/ML 1ML VIAL/SYRINGE SC SCH ×3 (06:16→21:42)
[2022-10-20] MEDS: **hydrALAZINE** 50 MG TAB PO SCH ×4 (06:17→23:16)
[2022-10-20 06:44] LABS: BLOOD UREA NITROGEN 9 MG/DL (9-23); CALCIUM LEVEL 8.5 MG/DL (8.5-10.1); CARBON DIOXIDE LEVEL 31 MMOL/L (20-31); CHLORIDE LEVEL 100 MMOL/L (98-107); CREATININE FOR GFR 1.12 MG/DL (0.70-1.30); GLOMERULAR FILTRATION RATE > 60.0 (>60); GLUCOSE, FASTING 78 MG/DL (60-100); POTASSIUM SERUM 3.4 MMOL/L (3.5-5.1); SODIUM LEVEL 141 MMOL/L (136-145)
[2022-10-20] MEDS ORDERED: diazePAM 10 MG TAB PO ONE (08:00)
[2022-10-20] MEDS: CitaloPRAM (CeleXA) 20 MG TAB PO SCH (08:12)
[2022-10-20] MEDS: ASPIRIN 81MG CHEW TABLET PO SCH (08:12)
[2022-10-20] MEDS: FOLIC ACID 1MG TAB PO SCH (08:12)
[2022-10-20] MEDS: levETIRAcetam 250MG TABLET (KEPPRA) PO SCH ×2 (08:12→21:41)
[2022-10-20] MEDS: MULTIVITAMINS/MINERALS THERAP 1 TAB PO SCH (08:12)
[2022-10-20] MEDS: PHENYTOIN ER 100 MG CAP PO SCH ×2 (08:16→21:40)
[2022-10-20] MEDS: THIAMINE 100 MG TAB PO SCH (08:16)
[2022-10-20] MEDS: atenoloL 50 MG TAB PO SCH ×2 (08:16→21:45)
[2022-10-20] MEDS: POTASSIUM CHLORIDE 10MEQ SR TABLET PO SCH ×2 (08:17→21:42)
[2022-10-20] MEDS: NEOSPORIN TOP OINT 15GM TOP SCH ×2 (08:17→21:46)
[2022-10-20] MEDS: PANTOPRAZOLE 40MG VIAL IV SCH (08:17)
[2022-10-20] MEDS: BENZOCAINE 10% 9GM TUBE (ANBESOL) TOP SCH ×2 (08:18→21:46)
[2022-10-20 10:00] VITALS: BP 140/90
[2022-10-20 10:53] LABS: CPK CREATINE PHOSPHOKINASE 1589 U/L (46-171)
[2022-10-20 14:00] VITALS: BP 128/98
[2022-10-20 18:27] VITALS: BP 140/100
[2022-10-20 20:28] VITALS: BP 148/109
[2022-10-20] MEDS: diazePAM 10 MG TAB PO SCH (21:41)
[2022-10-20] MEDS: LORazepam 2 MG/ML 1ML VIAL IV PRN (23:15)
[2022-10-21 02:00] VITALS: BP 130/80
[2022-10-21] MEDS: HEPARIN SOD (PORCINE) 5000UNITS/ML 1ML VIAL/SYRINGE SC SCH ×2 (05:37→15:19)
[2022-10-21] MEDS: **hydrALAZINE** 50 MG TAB PO SCH ×4 (05:38→17:27)
[2022-10-21 06:00] VITALS: BP 160/96
[2022-10-21 06:29] LABS: BLOOD UREA NITROGEN 10 MG/DL (9-23); CARBON DIOXIDE LEVEL 33 MMOL/L (20-31); CHLORIDE LEVEL 101 MMOL/L (98-107); GLOMERULAR FILTRATION RATE > 60.0 (>60); GLUCOSE, FASTING 84 MG/DL (60-100); POTASSIUM SERUM 3.5 MMOL/L (3.5-5.1); SODIUM LEVEL 141 MMOL/L (136-145)
[2022-10-21 06:39] LABS: CPK CREATINE PHOSPHOKINASE 854 U/L (46-171)
[2022-10-21] MEDS ORDERED: diazePAM 10 MG TAB PO ONE (07:40)
[2022-10-21] MEDS ORDERED: HYDR50TA PO (07:42)
[2022-10-21] MEDS ORDERED: ATEN50TA2 PO (07:42)
[2022-10-21] MEDS: PHENYTOIN ER 100 MG CAP PO SCH (08:20)
[2022-10-21] MEDS: levETIRAcetam 250MG TABLET (KEPPRA) PO SCH (08:20)
[2022-10-21] MEDS: MULTIVITAMINS/MINERALS THERAP 1 TAB PO SCH (08:20)
[2022-10-21] MEDS: POTASSIUM CHLORIDE 10MEQ SR TABLET PO SCH (08:21)
[2022-10-21] MEDS: atenoloL 50 MG TAB PO SCH (08:22)
[2022-10-21] MEDS: FOLIC ACID 1MG TAB PO SCH (08:22)
[2022-10-21] MEDS: ASPIRIN 81MG CHEW TABLET PO SCH (08:22)
[2022-10-21] MEDS: CitaloPRAM (CeleXA) 20 MG TAB PO SCH (08:26)
[2022-10-21] MEDS: THIAMINE 100 MG TAB PO SCH (08:26)
[2022-10-21] MEDS: NEOSPORIN TOP OINT 15GM TOP SCH (08:27)
[2022-10-21] MEDS: BENZOCAINE 10% 9GM TUBE (ANBESOL) TOP SCH (08:27)
[2022-10-21 10:00] VITALS: BP 169/101
[2022-10-21] MEDS: cloNIDine 0.1MG TABLET PO SCH ×2 (12:30→17:25)
[2022-10-21 14:00] VITALS: BP 156/98
[2022-10-21 17:25] VITALS: BP 153/99
[2022-10-22] MEDS ORDERED: FLUC10TA PO (13:16)
== END 2022-10-21 17:34 | DRG 53 ==
LOC: M ED 20:44 → M ED INP 10-13 02:16 → ENRESERV 10-13 03:52 → M ICU 10-13 03:54 → M MSPAV 10-16 12:21
PROVIDERS: ADMIT Internal Medicine; ATTEND General Practice
PROC: 5A1945Z Respiratory Ventilation, 24-96 Consecutive Hours (ICD-10-PCS; principal; 2022-10-13)
PROC: 02HV33Z Insertion of Infusion Device into Superior Vena Cava, Percutaneous Approach (ICD-10-PCS; 2022-10-13)
DX: G40.901 Epilepsy, unspecified, not intractable, with status epilepticus (principal); J96.01 Acute respiratory failure with hypoxia; J69.0 Pneumonitis due to inhalation of food and vomit; J15.211 Pneumonia due to Methicillin susceptible Staphylococcus aureus; N17.9 Acute kidney failure, unspecified; I47.1 Supraventricular tachycardia; M62.82 Rhabdomyolysis; E83.42 Hypomagnesemia; J96.02 Acute respiratory failure with hypercapnia; E87.20 Acidosis, unspecified; I48.0 Paroxysmal atrial fibrillation; F33.2 Major depressive disorder, recurrent severe without psychotic features; E83.39 Other disorders of phosphorus metabolism; E80.6 Other disorders of bilirubin metabolism; E87.6 Hypokalemia; F11.90 Opioid use, unspecified, uncomplicated; F14.10 Cocaine abuse, uncomplicated; F19.10 Other psychoactive substance abuse, uncomplicated; F41.9 Anxiety disorder, unspecified; F90.9 Attention-deficit hyperactivity disorder, unspecified type; I16.0 Hypertensive urgency; R74.01 Elevation of levels of liver transaminase levels; R94.5 Abnormal results of liver function studies; G47.00 Insomnia, unspecified; Z79.82 Long term (current) use of aspirin; Z79.899 Other long term (current) drug therapy; Z88.0 Allergy status to penicillin

== ENCOUNTER 2022-10-21 16:02 | Inpatient (IN) | payer BC ==
[~2022-10-21] VITALS: Ht 190.5 cm; Wt 115.2 kg
[~2022-10-21 16:02] MED LIST: ASPI81CH8 PO; ATEN50TA2 PO; BUPR150T12 PO; Benzocaine Gel TOP; CELE20TA PO; DIAZ10TA2 PO; DIAZ5TAB PO; DILA100C PO; HYDR50TA PO; KEPP250T5 PO; LINE1TAB6 PO; TADA20TA PO; VYVA40CA3 PO; ZOLP10TA2 PO
[2022-10-21] MEDS ORDERED: diazePAM 5MG TABLET PO PRN (16:20)
[2022-10-21] MEDS ORDERED: ASPIRIN 81MG CHEW TABLET PO ONE (16:20)
[2022-10-21] MEDS ORDERED: oxyCODONE 5MG TAB PO PRN (16:20)
[2022-10-21 18:33] VITALS: BP 110/65
[2022-10-21] MEDS: diazePAM 5MG TABLET PO SCH (20:49)
[2022-10-21] MEDS: PHENYTOIN ER 100 MG CAP PO SCH (20:49)
[2022-10-21] MEDS: levETIRAcetam 250MG TABLET (KEPPRA) PO SCH (20:50)
[2022-10-21] MEDS: POTASSIUM CHLORIDE 10MEQ SR TABLET PO SCH (20:50)
[2022-10-21] MEDS: atenoloL 50 MG TAB PO SCH (20:51)
[2022-10-21] MEDS: NEOSPORIN TOP OINT 15GM TOP SCH (20:54)
[2022-10-21] MEDS: **hydrALAZINE** 50 MG TAB PO SCH (20:54)
[2022-10-21] MEDS ORDERED: BENZOCAINE 10% 9GM TUBE (ANBESOL) TOP SCH (21:00)
[2022-10-21] MEDS: LORazepam 1 MG TAB PO PRN (22:06)
[2022-10-22] MEDS: cloNIDine 0.1MG TABLET PO SCH ×4 (00:53→23:48)
[2022-10-22 06:23] VITALS: BP 138/86
[2022-10-22] MEDS ORDERED: HOME MED LIST COMPLETE! XX SCH (08:10)
[2022-10-22] MEDS ORDERED: **hydrALAZINE** 50 MG TAB PO SCH (09:00)
[2022-10-22] MEDS: NEOSPORIN TOP OINT 15GM TOP SCH ×3 (09:00→20:33)
[2022-10-22] MEDS: PHENYTOIN ER 100 MG CAP PO SCH ×2 (09:16→20:30)
[2022-10-22] MEDS: POTASSIUM CHLORIDE 10MEQ SR TABLET PO SCH (09:16)
[2022-10-22] MEDS: **hydrALAZINE** 50 MG TAB PO SCH ×4 (09:16→20:33)
[2022-10-22] MEDS: MULTIVITAMINS/MINERALS THERAP 1 TAB PO SCH (09:17)
[2022-10-22] MEDS: THIAMINE 100 MG TAB PO SCH (09:17)
[2022-10-22] MEDS: levETIRAcetam 250MG TABLET (KEPPRA) PO SCH ×2 (09:17→20:30)
[2022-10-22] MEDS: atenoloL 50 MG TAB PO SCH ×2 (09:17→20:30)
[2022-10-22] MEDS: CitaloPRAM (CeleXA) 20 MG TAB PO SCH (09:17)
[2022-10-22 11:44] LABS: ALBUMIN 3.4 G/DL (3.2-5.2); ALKALINE PHOSPHATASE 118 U/L (46-116); ALT/SGPT 118 U/L (7.0-40); AST/SGOT 90 U/L (<34); BILIRUBIN,TOTAL 0.7 MG/DL (0.3-1.2); BLOOD UREA NITROGEN 13 MG/DL (9-23); CALCIUM LEVEL 9.2 MG/DL (8.5-10.1); CARBON DIOXIDE LEVEL 32 MMOL/L (20-31); CHLORIDE LEVEL 101 MMOL/L (98-107); CREATININE FOR GFR 1.13 MG/DL (0.70-1.30); GLOMERULAR FILTRATION RATE > 60.0 (>60); GLUCOSE, FASTING 73 MG/DL (60-100); POTASSIUM SERUM 4.3 MMOL/L (3.5-5.1); SODIUM LEVEL 139 MMOL/L (136-145); TOTAL PROTEIN 6.8 G/DL (5.7-8.2)
[2022-10-22] MEDS ORDERED: FLUC10TA PO (13:16)
[2022-10-22] MEDS: FLUCONAZOLE 100 MG TAB PO SCH (14:33)
[2022-10-22] MEDS: CEPHALEXIN 500 MG CAP PO SCH ×2 (17:17→20:30)
[2022-10-22 17:40] VITALS: BP 140/82
[2022-10-22] MEDS: diazePAM 5MG TABLET PO SCH (20:31)
[2022-10-22] MEDS: LORazepam 1 MG TAB PO PRN (21:17)
[2022-10-23 06:25] VITALS: BP 130/70
[2022-10-23] MEDS: BENZOCAINE 10% 9GM TUBE (ANBESOL) TOP PRN ×2 (08:41→17:54)
[2022-10-23] MEDS: POTASSIUM CHLORIDE 10MEQ SR TABLET PO SCH (08:47)
[2022-10-23] MEDS: atenoloL 50 MG TAB PO SCH ×2 (08:47→20:34)
[2022-10-23] MEDS: FLUCONAZOLE 100 MG TAB PO SCH (08:47)
[2022-10-23] MEDS: **hydrALAZINE** 50 MG TAB PO SCH ×4 (08:48→20:33)
[2022-10-23] MEDS: MULTIVITAMINS/MINERALS THERAP 1 TAB PO SCH (08:48)
[2022-10-23] MEDS: PHENYTOIN ER 100 MG CAP PO SCH ×2 (08:49→20:35)
[2022-10-23] MEDS: CitaloPRAM (CeleXA) 20 MG TAB PO SCH (08:49)
[2022-10-23] MEDS: NEOSPORIN TOP OINT 15GM TOP SCH ×2 (08:49→21:00)
[2022-10-23] MEDS: levETIRAcetam 250MG TABLET (KEPPRA) PO SCH ×2 (08:49→20:34)
[2022-10-23] MEDS: THIAMINE 100 MG TAB PO SCH (08:49)
[2022-10-23] MEDS: CEPHALEXIN 500 MG CAP PO SCH ×4 (08:49→20:34)
[2022-10-23] MEDS: cloNIDine 0.1MG TABLET PO SCH ×2 (12:15→23:35)
[2022-10-23 17:57] VITALS: BP 135/86
[2022-10-23] MEDS: diazePAM 5MG TABLET PO SCH (20:34)
[2022-10-23] MEDS: LORazepam 1 MG TAB PO PRN (20:34)
[2022-10-24] MEDS ORDERED: FLUC10TA PO (06:30)
[2022-10-24] MEDS ORDERED: CEPH500C PO (06:40)
[2022-10-24] MEDS ORDERED: NEOM28OI TOP (06:40)
[2022-10-24 06:51] VITALS: BP 144/72
[2022-10-24 07:24] LABS: BLOOD UREA NITROGEN 10 MG/DL (9-23); CALCIUM LEVEL 8.8 MG/DL (8.5-10.1); CARBON DIOXIDE LEVEL 28 MMOL/L (20-31); CHLORIDE LEVEL 105 MMOL/L (98-107); CREATININE FOR GFR 1.07 MG/DL (0.70-1.30); GLOMERULAR FILTRATION RATE > 60.0 (>60); GLUCOSE, FASTING 86 MG/DL (60-100); POTASSIUM SERUM 3.7 MMOL/L (3.5-5.1); SODIUM LEVEL 142 MMOL/L (136-145)
[2022-10-24] MEDS: FLUCONAZOLE 100 MG TAB PO SCH (08:11)
[2022-10-24] MEDS: PHENYTOIN ER 100 MG CAP PO SCH (08:11)
[2022-10-24] MEDS: CitaloPRAM (CeleXA) 20 MG TAB PO SCH (08:11)
[2022-10-24] MEDS: POTASSIUM CHLORIDE 10MEQ SR TABLET PO SCH (08:11)
[2022-10-24] MEDS: MULTIVITAMINS/MINERALS THERAP 1 TAB PO SCH (08:11)
[2022-10-24] MEDS: CEPHALEXIN 500 MG CAP PO SCH ×2 (08:11→12:27)
[2022-10-24] MEDS: **hydrALAZINE** 50 MG TAB PO SCH ×2 (08:12→12:30)
[2022-10-24] MEDS: THIAMINE 100 MG TAB PO SCH (08:12)
[2022-10-24] MEDS: atenoloL 50 MG TAB PO SCH (08:12)
[2022-10-24] MEDS: levETIRAcetam 250MG TABLET (KEPPRA) PO SCH (08:13)
[2022-10-24] MEDS: NEOSPORIN TOP OINT 15GM TOP SCH (09:00)
[2022-10-24 12:30] VITALS: BP 140/86
[2022-10-24] MEDS: cloNIDine 0.1MG TABLET PO SCH (12:30)
[2022-10-24] MEDS ORDERED: LEVE10003 PO (19:33)
[2022-10-24] MEDS ORDERED: CITA20TA6 PO (19:33)
[2022-10-24] MEDS ORDERED: ATEN100T PO (19:33)
[2022-10-24] MEDS ORDERED: ASPI81CH33 PO (19:33)
[2022-10-24] MEDS ORDERED: PHEN100C PO (19:33)
[2022-10-24] MEDS ORDERED: HYDR100T26 PO (19:33)
[2022-10-24] MEDS ORDERED: KEPP250T5 PO (19:42)
[2022-10-24] MEDS ORDERED: DIAZ10TA2 PO (19:42)
[2022-10-24] MEDS ORDERED: DILA100C PO (19:42)
[2022-10-24] MEDS ORDERED: ASPI81CH8 PO (19:42)
[2022-10-24] MEDS ORDERED: ATEN50TA2 PO (19:42)
== END 2022-10-24 15:29 | disposition home or self-care (01) | DRG 751 ==
LOC: M PSY 17:41
PROVIDERS: ADMIT Student in an Organized Health Care Education/Training Program; ATTEND Psychiatry & Neurology Psychiatry
DX: F33.2 Major depressive disorder, recurrent severe without psychotic features (principal); F41.9 Anxiety disorder, unspecified; Z62.810 Personal history of physical and sexual abuse in childhood; Z91.51 Personal history of suicidal behavior; Z79.82 Long term (current) use of aspirin; Z79.899 Other long term (current) drug therapy; Z88.0 Allergy status to penicillin; Z85.3 Personal history of malignant neoplasm of breast; Z71.51 Drug abuse counseling and surveillance of drug abuser; G40.909 Epilepsy, unspecified, not intractable, without status epilepticus; F15.90 Other stimulant use, unspecified, uncomplicated

== ENCOUNTER 2025-03-25 11:36 | Inpatient (IN) | payer BC, SELFPAY ==
[~2025-03-25] VITALS: Ht 190.5 cm; Wt 113.2 kg
[~2025-03-25 11:36] MED LIST changes: +ASPI81CH33 PO; +ATEN100T PO; +CEPH500C PO; +CITA20TA6 PO; +FLUC10TA PO; +HYDR100T26 PO; -HYDR50TA PO; +HYDR50TA47 PO; +LEVE10003 PO; +NEOM28OI TOP; +PHEN100C PO
[2025-03-25 12:27] LABS: BASO # 0.1 10^3/uL (0.0-0.2); BASO % 2.0 % (0.0-1.0); EOS # 0.1 10^3/uL (0.0-0.5); EOS % 0.9 % (0.0-3.0); LYMPH # 1.6 10^3/uL (1.5-5.0); LYMPH % 29.8 % (24.0-44.0); MONO # 0.7 10^3/uL (0.0-0.8); MONO % 13.6 % (2.0-8.0); NEUTROPHILS # 2.9 10^3/uL (1.5-8.5); NEUTROPHILS % 53.5 % (36.0-66.0); PLATELET COUNT, AUTOMATED 257 10^3/uL (150-450)
[2025-03-25 12:44] LABS: CALCIUM LEVEL 8.3 MG/DL (8.5-10.1); CARBON DIOXIDE LEVEL 32 MMOL/L (20-31); CHLORIDE LEVEL 91 MMOL/L (98-107); CREATININE FOR GFR 0.97 MG/DL (0.70-1.30); GLOMERULAR FILTRATION RATE > 90.0 (>60); INR 1.04; POTASSIUM SERUM 3.0 MMOL/L (3.5-5.1); SODIUM LEVEL 139 MMOL/L (136-145)
[2025-03-25 13:48] LABS: INR 0.99
[2025-03-25 14:01] LABS: ETHYL ALCOHOL (ETHANOL) 0.225 % (0.000-0.010); MAGNESIUM LEVEL 1.3 MG/DL (1.8-2.4)
[2025-03-25 14:06] LABS: FREE T4 0.98 NG/DL (0.89-1.76)
[2025-03-25 14:14] LABS: CPK CREATINE PHOSPHOKINASE 1690.0 U/L (46-171)
[2025-03-25 15:32] LABS: CSF TUBE# TP TUBE 3; TOTAL PROTEIN,CSF 67.8 MG/DL (15-45)
[2025-03-25 15:35] LABS: CSF TUBE# GLU TUBE 3; GLUCOSE CSF 60.0 MG/DL (40-70)
[2025-03-25] MEDS ORDERED: NS (Normal Saline) 0.9% 1,000 ML IV SCH (15:40)
[2025-03-25 15:41] LABS: APPEARANCE, CSF CLEAR (CLEAR); COLOR, CSF COLORLESS (COLORLESS); CSF TUBE# CELL CNT TUBE 4
[2025-03-25] MEDS: NS (Normal Saline) 0.9% 1,000 ML IV ONE (16:12)
[2025-03-25] MEDS: MAG SULF 1GM/100ML (MAG RUN) 1 GM in IV 1 EA IV ONE (16:12)
[2025-03-25] MEDS: ACETAMINOPHEN 500 MG TAB PO ONE (16:30)
[2025-03-25] MEDS ORDERED: NALOXONE INJ 0.4 MG/1 ML VIAL IV PRN (16:30)
[2025-03-25] MEDS ORDERED: FLUC100T3 PO (16:42)
[2025-03-25 16:43] LABS: ALT/SGPT 81 U/L (7.0-40); AST/SGOT 208 U/L (<34); C REACTIVE PROTEIN QUANTITATIV < 0.50 MG/DL (<1.0)
[2025-03-25 16:45] LABS: ERYTHROCYTE SEDIMENTATION RATE 13 mm/hr (0-15)
[2025-03-25] MEDS ORDERED: HOME MED LIST COMPLETE! XX SCH (16:45)
[2025-03-25] MEDS: HYDROMORPHONE HCL 0.5 MG/0.5 ML SYRINGE IV ONE (17:35)
[2025-03-25] MEDS: KETOROLAC 30 MG/ML 1 ML VIAL IV ONE (17:36)
[2025-03-25 17:44] LABS: ESTIMATED AVERAGE GLUCOSE 100.0 MG/DL (60-110)
[2025-03-25 18:21] LABS: LUTEINIZING HORMONE < 0.1 mIU/ML (1.5-9.3); PROLACTIN 8.43 NG/ML (2.1-17.7)
[2025-03-25] MEDS ORDERED: PROHANCE 279.3MG/ML 15ML VIAL As Ordered ONE (18:35)
[2025-03-25] MEDS ORDERED: PROHANCE 279.3MG/ML 5ML VIAL As Ordered ONE (18:35)
[2025-03-25] MEDS: NS 500 ML IV ONE (20:16)
[2025-03-25] MEDS: NS (Normal Saline) 0.9% 1,000 ML IV SCH (20:16)
[2025-03-25 21:00] VITALS: BP 157/86; TEMP 98.1; O2SAT 93
[2025-03-25] MEDS: ONDANSETRON 4MG 2ML VIAL IV ONE (21:25)
[2025-03-25] MEDS: POTASSIUM CHLORIDE 10MEQ SR TABLET PO ONE (21:32)
[2025-03-25] MEDS: FOLIC ACID 1 MG TAB PO SCH (21:33)
[2025-03-25] MEDS: PERCOCET 5MG/325MG TAB PO PRN (21:33)
[2025-03-25] MEDS: THIAMINE 100 MG TAB PO SCH (21:33)
[2025-03-25] MEDS: MULTIVITAMINS/MINERALS THERAP 1 TAB PO SCH (21:33)
[2025-03-25] MEDS: IMMUNE GLOBULIN 10% 40 GM in IV 1 EA IV SCH (21:43)
[2025-03-25 21:45] VITALS: BP 138/79; TEMP 98.6; O2SAT 93
[2025-03-25 22:16] VITALS: BP 137/87; TEMP 98.4; O2SAT 94
[2025-03-25 22:49] VITALS: BP 157/99; TEMP 98.2; O2SAT 93
[2025-03-25 23:23] VITALS: BP 169/95; TEMP 98.4; O2SAT 92
[2025-03-25 23:56] VITALS: BP 158/86; TEMP 98.7; O2SAT 90
[2025-03-26] VITALS (10 sets, daily range): BP systolic 129–172; BP diastolic 80–97; TEMP 97.3–98.6; O2SAT 92–99
[2025-03-26] MEDS: ONDANSETRON 4MG 2ML VIAL IV ONE (02:18)
[2025-03-26] MEDS: diphenhydrAMINE 50 MG/ML VIAL IV ONE (02:18)
[2025-03-26 06:00] LABS: BASO # 0.1 10^3/uL (0.0-0.2); BASO % 1.1 % (0.0-1.0); EOS # 0.0 10^3/uL (0.0-0.5); EOS % 0.5 % (0.0-3.0); LYMPH # 1.0 10^3/uL (1.5-5.0); LYMPH % 15.4 % (24.0-44.0); MONO # 0.7 10^3/uL (0.0-0.8); MONO % 10.8 % (2.0-8.0); NEUTROPHILS # 4.6 10^3/uL (1.5-8.5); NEUTROPHILS % 71.9 % (36.0-66.0); PLATELET COUNT, AUTOMATED 181 10^3/uL (150-450)
[2025-03-26 06:28] LABS: CALCIUM LEVEL 7.9 MG/DL (8.5-10.1); CARBON DIOXIDE LEVEL 34 MMOL/L (20-31); CHLORIDE LEVEL 94 MMOL/L (98-107); CREATININE FOR GFR 0.83 MG/DL (0.70-1.30); GLOMERULAR FILTRATION RATE > 90.0 (>60); POTASSIUM SERUM 3.1 MMOL/L (3.5-5.1); SODIUM LEVEL 140 MMOL/L (136-145)
[2025-03-26] MEDS: OXAZEPAM 10MG CAP PO ONE (09:46)
[2025-03-26] MEDS: PERCOCET 5MG/325MG TAB PO PRN (13:09)
[2025-03-26] MEDS: OXAZEPAM 15MG CAP PO SCH (17:59)
[2025-03-26] MEDS: chlordiazePOXIDE 25 MG CAP PO SCH (18:00)
[2025-03-26] MEDS: RAMELTEON 8 MG TAB PO PRN (21:42)
[2025-03-27] VITALS (14 sets, daily range): BP systolic 111–178; BP diastolic 75–104; TEMP 97.5–98.7; O2SAT 92–99
[2025-03-27] MEDS ORDERED: OLANZapine INTRAMUSCULAR 10MG VIAL IM PRN (02:10)
[2025-03-27 05:12] LABS: BASO # 0.0 10^3/uL (0.0-0.2); BASO % 0.7 % (0.0-1.0); EOS # 0.2 10^3/uL (0.0-0.5); EOS % 3.2 % (0.0-3.0); LYMPH # 1.5 10^3/uL (1.5-5.0); LYMPH % 25.1 % (24.0-44.0); MONO # 0.6 10^3/uL (0.0-0.8); MONO % 9.2 % (2.0-8.0); NEUTROPHILS # 3.7 10^3/uL (1.5-8.5); NEUTROPHILS % 61.5 % (36.0-66.0); PLATELET COUNT, AUTOMATED 171 10^3/uL (150-450)
[2025-03-27 05:35] LABS: CALCIUM LEVEL 8.0 MG/DL (8.5-10.1); CARBON DIOXIDE LEVEL 33 MMOL/L (20-31); CHLORIDE LEVEL 96 MMOL/L (98-107); CREATININE FOR GFR 0.89 MG/DL (0.70-1.30); GLOMERULAR FILTRATION RATE > 90.0 (>60); POTASSIUM SERUM 3.0 MMOL/L (3.5-5.1); SODIUM LEVEL 139 MMOL/L (136-145)
[2025-03-27] MEDS: POTASSIUM CHLORIDE 10MEQ SR TABLET PO ONE ×2 (06:36→15:39)
[2025-03-27] MEDS: KCL 10MEQ/100ML SWI (KRUN) 10 MEQ in IV 1 EA IV SCH (06:37)
[2025-03-27] MEDS ORDERED: NS (Normal Saline) 0.9% 1,000 ML IV ONE (07:55)
[2025-03-27] MEDS ORDERED: POTASSIUM CHLORIDE 10MEQ SR TABLET PO SCH (07:55)
[2025-03-27] MEDS: POLYVINYL ALCOHOL OPHTH SOLN 15ML (LIQUITEARS) OU ONE (08:00)
[2025-03-27] MEDS: POLYVINYL ALCOHOL OPHTH SOLN 15ML (LIQUITEARS) OU SCH (09:00)
[2025-03-27] MEDS: UNRESOLVED CLARIFICATION ENTRY XX SCH (09:05)
[2025-03-27] MEDS: KETOROLAC 30 MG/ML 1 ML VIAL IV ONE (09:12)
[2025-03-27] MEDS: PERCOCET 5MG/325MG TAB PO ONE (09:23)
[2025-03-27 12:15] LABS: MAGNESIUM LEVEL 1.1 MG/DL (1.8-2.4); POTASSIUM SERUM 3.1 MMOL/L (3.5-5.1)
[2025-03-27] MEDS: MAG SULF 1GM/100ML (MAG RUN) 1 GM in IV 1 EA IV SCH (15:36)
[2025-03-27] MEDS: CALCIUM CARBONATE 500 MG CHEW U/D PO ONE (15:38)
[2025-03-27] MEDS: CALCIUM GLUCONATE 1,000 MG in DEXTROSE 5% (D5W) MINI-BAG PLU 100 ML IV ONE (16:44)
[2025-03-27] MEDS: METOPROLOL TART 25 MG TABLET PO SCH (18:06)
[2025-03-27] MEDS: MAGNESIUM OXIDE 400 MG TAB PO SCH (20:13)
[2025-03-28] VITALS (11 sets, daily range): BP systolic 133–163; BP diastolic 88–98; TEMP 97–98.4; O2SAT 95–100
[2025-03-28 06:03] LABS: BASO # 0.0 10^3/uL (0.0-0.2); BASO % 0.7 % (0.0-1.0); EOS # 0.2 10^3/uL (0.0-0.5); EOS % 4.0 % (0.0-3.0); LYMPH # 1.2 10^3/uL (1.5-5.0); LYMPH % 20.4 % (24.0-44.0); MONO # 0.4 10^3/uL (0.0-0.8); MONO % 6.7 % (2.0-8.0); NEUTROPHILS # 4.1 10^3/uL (1.5-8.5); NEUTROPHILS % 68.0 % (36.0-66.0); PLATELET COUNT, AUTOMATED 173 10^3/uL (150-450)
[2025-03-28 06:40] LABS: CALCIUM LEVEL 8.5 MG/DL (8.5-10.1); CARBON DIOXIDE LEVEL 32 MMOL/L (20-31); CHLORIDE LEVEL 95 MMOL/L (98-107); CREATININE FOR GFR 0.88 MG/DL (0.70-1.30); GLOMERULAR FILTRATION RATE > 90.0 (>60); POTASSIUM SERUM 3.0 MMOL/L (3.5-5.1); SODIUM LEVEL 137 MMOL/L (136-145)
[2025-03-28] MEDS: LOSARTAN 50 MG TABLET PO ONE (12:14)
[2025-03-28] MEDS: POTASSIUM CHLORIDE 10MEQ SR TABLET PO SCH (12:14)
[2025-03-28] MEDS: CALCIUM GLUCONATE 1,000 MG in DEXTROSE 5% (D5W) MINI-BAG PLU 100 ML IV ONE (12:15)
[2025-03-28] MEDS: MAG SULF 1GM/100ML (MAG RUN) 1 GM in IV 1 EA IV ONE (13:50)
[2025-03-28 18:53] LABS: MAGNESIUM LEVEL 1.8 MG/DL (1.8-2.4); POTASSIUM SERUM 3.5 MMOL/L (3.5-5.1)
[2025-03-28] MEDS: METOPROLOL TART 50 MG TAB PO ONE (20:03)
[2025-03-28] MEDS ORDERED: METOPROLOL TART 25 MG TABLET PO SCH (21:00)
[2025-03-29] VITALS (13 sets, daily range): BP systolic 132–180; BP diastolic 75–110; TEMP 97.2–98.2; O2SAT 96–100
[2025-03-29 06:04] LABS: BASO # 0.0 10^3/uL (0.0-0.2); BASO % 0.9 % (0.0-1.0); EOS # 0.2 10^3/uL (0.0-0.5); EOS % 5.1 % (0.0-3.0); LYMPH # 1.0 10^3/uL (1.5-5.0); LYMPH % 24.0 % (24.0-44.0); MONO # 0.5 10^3/uL (0.0-0.8); MONO % 11.6 % (2.0-8.0); NEUTROPHILS # 2.5 10^3/uL (1.5-8.5); NEUTROPHILS % 58.2 % (36.0-66.0); PLATELET COUNT, AUTOMATED 172 10^3/uL (150-450)
[2025-03-29 06:21] LABS: MAGNESIUM LEVEL 1.5 MG/DL (1.8-2.4); POTASSIUM SERUM 3.2 MMOL/L (3.5-5.1)
[2025-03-29 06:25] LABS: CALCIUM LEVEL 8.4 MG/DL (8.5-10.1); CARBON DIOXIDE LEVEL 30 MMOL/L (20-31); CHLORIDE LEVEL 100 MMOL/L (98-107); CREATININE FOR GFR 0.87 MG/DL (0.70-1.30); GLOMERULAR FILTRATION RATE > 90.0 (>60); POTASSIUM SERUM 3.2 MMOL/L (3.5-5.1); SODIUM LEVEL 140 MMOL/L (136-145)
[2025-03-29] MEDS ORDERED: MAGN400T33 PO (06:53)
[2025-03-29] MEDS ORDERED: LOSA-528 PO (06:53)
[2025-03-29] MEDS ORDERED: CHLO25CA10 PO (07:02)
[2025-03-29] MEDS ORDERED: TALK1KIT MC (07:02)
[2025-03-29] MEDS ORDERED: METO1TAB87 PO (07:02)
[2025-03-29] MEDS ORDERED: POTA-298 PO (07:05)
[2025-03-29] MEDS: POTASSIUM CHLORIDE 10MEQ SR TABLET PO SCH (08:53)
[2025-03-29] MEDS: MAG SULF 1GM/100ML (MAG RUN) 1 GM in IV 1 EA IV SCH (08:54)
[2025-03-29] MEDS: METOPROLOL TART 25 MG TABLET PO ONE (08:54)
[2025-03-29] MEDS ORDERED: METOPROLOL TART 50 MG TAB PO SCH (09:00)
[2025-03-29] MEDS: LOSARTAN 50 MG TABLET PO SCH (11:42)
[2025-03-29] MEDS: POTASSIUM CHLORIDE 10MEQ SR TABLET PO ONE (11:49)
[2025-03-29] MEDS ORDERED: TOPR50TA PO (12:13)
[2025-03-29] MEDS: METOPROLOL SUCC. 50 MG *XL* TAB PO ONE (12:20)
[2025-03-30 07:57] LABS: ADRENOCORTICOTROPHIC HORMONE 19 pg/mL (6-50)
[2025-03-30 14:37] LABS: IGF 1 Z SCORE MALE -1.6 SD (-2.0 - +2.0); SOMATOMEDIN-C INSULIN GROWTH. 64 ng/mL (52-328)
[2025-03-30 15:38] LABS: BORRELIA SPECIES DNA NOT DETECTED (NOT DETECT)
== END 2025-03-29 17:08 | disposition home or self-care (01) | DRG 49 ==
LOC: M ED 11:36 → M ED INP 15:53 → M PCU 20:38
PROVIDERS: ADMIT General Practice; ATTEND General Practice
DX: G61.0 Guillain-Barre syndrome (principal); E83.42 Hypomagnesemia; E87.6 Hypokalemia; R51.9 Headache, unspecified; G47.30 Sleep apnea, unspecified; F32.A Depression, unspecified; F90.9 Attention-deficit hyperactivity disorder, unspecified type; R04.0 Epistaxis; Z86.711 Personal history of pulmonary embolism; I10 Essential (primary) hypertension; G47.419 Narcolepsy without cataplexy; I16.0 Hypertensive urgency; R41.0 Disorientation, unspecified; H10.13 Acute atopic conjunctivitis, bilateral; F10.939 Alcohol use, unspecified with withdrawal, unspecified; Z88.0 Allergy status to penicillin; Z88.8 Allergy status to other drugs, medicaments and biological substances; Z79.899 Other long term (current) drug therapy

== ENCOUNTER 2025-04-08 20:31 | Emergency (ER) | payer SELFPAY ==
[~2025-04-08] VITALS: Ht 190.5 cm; Wt 115.9 kg
[~2025-04-08 20:31] MED LIST changes: +CHLO25CA10 PO; +FLUC100T3 PO; +LOSA-528 PO; +MAGN400T33 PO; +METO1TAB87 PO; +POTA-298 PO; +TALK1KIT MC; +TOPR50TA PO; +ZOLP10TA11 PO; -ZOLP10TA2 PO
[2025-04-09 01:55] LABS: BASO # 0.1 10^3/uL (0.0-0.2); BASO % 2.0 % (0.0-1.0); EOS # 0.1 10^3/uL (0.0-0.5); EOS % 0.9 % (0.0-3.0); LYMPH # 2.2 10^3/uL (1.5-5.0); LYMPH % 34.0 % (24.0-44.0); MONO # 0.7 10^3/uL (0.0-0.8); MONO % 11.3 % (2.0-8.0); NEUTROPHILS # 3.4 10^3/uL (1.5-8.5); NEUTROPHILS % 51.6 % (36.0-66.0); PLATELET COUNT, AUTOMATED 436 10^3/uL (150-450)
[2025-04-09] MEDS: KETOROLAC 30 MG/ML 1 ML VIAL IV ONE (01:59)
[2025-04-09 02:00] LABS: ERYTHROCYTE SEDIMENTATION RATE 35 mm/hr (0-15)
[2025-04-09 02:18] LABS: ALT/SGPT 55 U/L (7.0-40); AST/SGOT 117 U/L (<34); C REACTIVE PROTEIN QUANTITATIV < 0.50 MG/DL (<1.0); CALCIUM LEVEL 8.5 MG/DL (8.5-10.1); CARBON DIOXIDE LEVEL 32 MMOL/L (20-31); CHLORIDE LEVEL 98 MMOL/L (98-107); CREATININE FOR GFR 0.98 MG/DL (0.70-1.30); GLOMERULAR FILTRATION RATE > 90.0 (>60); MAGNESIUM LEVEL 1.4 MG/DL (1.8-2.4); POTASSIUM SERUM 3.9 MMOL/L (3.5-5.1); SODIUM LEVEL 143 MMOL/L (136-145)
[2025-04-09 02:20] LABS: FREE T4 0.91 NG/DL (0.89-1.76)
[2025-04-09 02:36] LABS: AMPHETAMINES LEVEL URINE NEGATIVE (NEGATIVE); BARBITURATES URINE NEGATIVE (NEGATIVE); CANNABINOIDS URINE NEGATIVE (NEGATIVE); PHENCYCLIDINE URINE NEGATIVE (NEGATIVE)
[2025-04-09 02:37] LABS: METHADONE URINE NEGATIVE (NEGATIVE); OPIATES URINE NEGATIVE (NEGATIVE)
[2025-04-09 02:57] LABS: BENZODIAZEPINES URINE POSITIVE (NEGATIVE); COCAINE METABOLITE URINE POSITIVE (NEGATIVE)
[2025-04-09 03:13] LABS: ETHYL ALCOHOL (ETHANOL) 0.286 % (0.000-0.010)
[2025-04-09 04:17] LABS: CPK CREATINE PHOSPHOKINASE 536 U/L (46-171)
[2025-04-09] MEDS: MAG SULF 1GM/100ML (MAG RUN) 1 GM in IV 1 EA IV ONE (04:21)
[2025-04-09] MEDS: MAGNESIUM OXIDE 400 MG TAB PO ONE (04:21)
[2025-04-09 05:35] VITALS: BP 173/105; TEMP 99; O2SAT 96
[2025-04-09] MEDS: ACETAMINOPHEN *IV* 1,000 MG in IV 1 EA IV ONE (05:54)
[2025-04-09] MEDS ORDERED: MAGO400T2 PO (06:07)
== END 2025-04-09 06:36 | disposition home or self-care (01) ==
LOC: M ED 20:31
DX: E83.42 Hypomagnesemia (principal); R20.2 Paresthesia of skin; F17.200 Nicotine dependence, unspecified, uncomplicated; G40.909 Epilepsy, unspecified, not intractable, without status epilepticus; I10 Essential (primary) hypertension; F19.10 Other psychoactive substance abuse, uncomplicated; F10.10 Alcohol abuse, uncomplicated; Z88.0 Allergy status to penicillin; Z88.8 Allergy status to other drugs, medicaments and biological substances; Z79.899 Other long term (current) drug therapy
CPT/HCPCS: 80053; 80307; 82077; 82550; 83735; 84439; 84443; 85025; 85652; 86140; 87486; 87581; 87633; 87798; 96365; 96366; 96375; 99284; J0131; J1100; J1885; J3475

== ENCOUNTER 2025-04-21 16:40 | Observation (INO) | payer SELFPAY ==
[~2025-04-21] VITALS: Ht 190.5 cm; Wt 113.1 kg
[~2025-04-21 16:40] MED LIST changes: +MAGO400T2 PO
[2025-04-21] MEDS ORDERED: DIAZ10TA2 PO (17:18)
[2025-04-21 17:44] LABS: BASO # 0.1 10^3/uL (0.0-0.2); BASO % 1.5 % (0.0-1.0); EOS # 0.1 10^3/uL (0.0-0.5); EOS % 1.9 % (0.0-3.0); LYMPH # 3.1 10^3/uL (1.5-5.0); LYMPH % 42.7 % (24.0-44.0); MONO # 0.7 10^3/uL (0.0-0.8); MONO % 10.2 % (2.0-8.0); NEUTROPHILS # 3.1 10^3/uL (1.5-8.5); NEUTROPHILS % 43.6 % (36.0-66.0); PLATELET COUNT, AUTOMATED 331 10^3/uL (150-450)
[2025-04-21 17:55] LABS: ALT/SGPT 60 U/L (7.0-40); AST/SGOT 109 U/L (<34); CALCIUM LEVEL 8.4 MG/DL (8.5-10.1); CARBON DIOXIDE LEVEL 35 MMOL/L (20-31); CHLORIDE LEVEL 94 MMOL/L (98-107); CREATININE FOR GFR 1.04 MG/DL (0.70-1.30); GLOMERULAR FILTRATION RATE > 90.0 (>60); POTASSIUM SERUM 3.2 MMOL/L (3.5-5.1); SODIUM LEVEL 140 MMOL/L (136-145)
[2025-04-21 17:58] LABS: CPK CREATINE PHOSPHOKINASE 677 U/L (46-171)
[2025-04-21 18:47] LABS: VENOUS BASE EXCESS 10.5 (-2.0-2.0); VENOUS HCO3 37.8 MMOL/L (23.0-27.0); VENOUS O2 SATURATION 60.4 % (60.0-80.0); VENOUS PARTIAL PRESSURE CO2 60.1 mmHg (38.0-50.0); VENOUS PARTIAL PRESSURE O2 35.8 mmHg (30.0-50.0); VENOUS PH 7.417 UNITS (7.330-7.430); VENOUS STANDARD HCO3 33.2 MMOL/L; VENOUS TOTAL CO2 39.7 MMOL/L (24.0-28.0)
[2025-04-21 18:53] LABS: OSMOLALITY SERUM 396 MOSM/KG (275-295)
[2025-04-21 19:07] LABS: ERYTHROCYTE SEDIMENTATION RATE 29 mm/hr (0-15); SALICYLATE LEVEL < 3.0 MG/DL (<30)
[2025-04-21 19:08] LABS: C REACTIVE PROTEIN QUANTITATIV < 0.50 MG/DL (<1.0); MAGNESIUM LEVEL 1.5 MG/DL (1.8-2.4)
[2025-04-21 19:46] LABS: ETHYL ALCOHOL (ETHANOL) 0.325 % (0.000-0.010)
[2025-04-21] MEDS: ACETAMINOPHEN *IV* 1,000 MG in IV 1 EA IV ONE (20:13)
[2025-04-21] MEDS ORDERED: POTA595T16 PO (20:32)
[2025-04-21] MEDS ORDERED: MAGN400T2 PO (20:32)
[2025-04-21] MEDS ORDERED: OMEP1CAP73 PO (20:32)
[2025-04-21] MEDS ORDERED: VITATAB73 PO (20:32)
[2025-04-21] MEDS ORDERED: CHLO25TA88 PO (20:32)
[2025-04-21] MEDS ORDERED: HOME MED LIST COMPLETE! XX SCH (20:35)
[2025-04-21] MEDS: NS (Normal Saline) 0.9% 1,000 ML IV ONE ×2 (20:45→23:00)
[2025-04-21 21:17] LABS: AMPHETAMINES LEVEL URINE NEGATIVE (NEGATIVE); BARBITURATES URINE NEGATIVE (NEGATIVE); METHADONE URINE NEGATIVE (NEGATIVE)
[2025-04-21 21:18] LABS: CANNABINOIDS URINE NEGATIVE (NEGATIVE); OPIATES URINE NEGATIVE (NEGATIVE); PHENCYCLIDINE URINE NEGATIVE (NEGATIVE)
[2025-04-21 21:21] LABS: BENZODIAZEPINES URINE POSITIVE (NEGATIVE); COCAINE METABOLITE URINE POSITIVE (NEGATIVE)
[2025-04-21 22:54] LABS: APPEARANCE, URINE CLEAR (CLEAR); BACTERIA, URINE AUTO NEGATIVE (NEGATIVE); BILIRUBIN, URINE AUTO NEGATIVE (NEGATIVE); BLOOD, URINE BLOOD NEGATIVE (NEGATIVE); GLUCOSE, URINE (UA) AUTO NEGATIVE (NEGATIVE); KETONE, URINE AUTO NEGATIVE (NEGATIVE); LEUKOCYTE ESTERASE, URINE AUTO NEGATIVE (NEGATIVE); NITRITE, URINE AUTO NEGATIVE (NEGATIVE); PROTEIN, URINE AUTO NEGATIVE (NEGATIVE); RBC, URINE AUTO 0 /HPF (0-3); SPECIFIC GRAVITY URINE AUTO 1.006 (1.002-1.035); SQUAMOUS EPITHELIAL CELL UR AU 0 /HPF (0-6); UROBILINOGEN, URINE AUTO 2.0 mg/dL (0.0-2.0); WBC, URINE AUTO 0 /HPF (0-3)
[2025-04-22] VITALS (13 sets, daily range): BP systolic 138–184; BP diastolic 81–111; TEMP 97.2–99.5; O2SAT 96–100
[2025-04-22] MEDS ORDERED: MOM 30 ML SUSPENSION UDC PO PRN (00:40)
[2025-04-22] MEDS ORDERED: MAALOX 30 ML SUSP *UDC PO PRN (00:40)
[2025-04-22 00:45] LABS: C REACTIVE PROTEIN QUANTITATIV < 0.50 MG/DL (<1.0)
[2025-04-22] MEDS: PANTOPRAZOLE 40MG VIAL IV SCH (02:31)
[2025-04-22] MEDS: LR 1,000 ML IV ONE (02:31)
[2025-04-22] MEDS: POTASSIUM CHLORIDE 10MEQ SR TABLET PO ONE ×2 (02:31→09:04)
[2025-04-22] MEDS: MAG SULF 1GM/100ML (MAG RUN) 1 GM in IV 1 EA IV SCH (02:32)
[2025-04-22] MEDS: ACETAMINOPHEN 325 MG TAB PO PRN (02:32)
[2025-04-22] MEDS: THIAMINE 100 MG TAB PO SCH (02:33)
[2025-04-22] MEDS: LR 1,000 ML IV SCH (04:01)
[2025-04-22 07:35] LABS: PLATELET COUNT, AUTOMATED 226 10^3/uL (150-450)
[2025-04-22 07:58] LABS: ALT/SGPT 49 U/L (7.0-40); AST/SGOT 89 U/L (<34); CALCIUM LEVEL 7.6 MG/DL (8.5-10.1); CARBON DIOXIDE LEVEL 33 MMOL/L (20-31); CHLORIDE LEVEL 99 MMOL/L (98-107); CREATININE FOR GFR 0.98 MG/DL (0.70-1.30); GLOMERULAR FILTRATION RATE > 90.0 (>60); MAGNESIUM LEVEL 1.6 MG/DL (1.8-2.4); POTASSIUM SERUM 3.4 MMOL/L (3.5-5.1); SODIUM LEVEL 141 MMOL/L (136-145)
[2025-04-22] MEDS: MAG SULF 1GM/100ML (MAG RUN) 1 GM in IV 1 EA IV ONE (09:03)
[2025-04-22] MEDS: FOLIC ACID 1 MG TAB PO SCH (09:04)
[2025-04-22] MEDS: ENOXAPARIN 40 MG/0.4 ML SYRINGE (J1650 PER 10MG) SC SCH (09:04)
[2025-04-22] MEDS: FLUCONAZOLE 100 MG TAB PO SCH (09:04)
[2025-04-22] MEDS: MULTIVITAMINS/MINERALS THERAP 1 TAB PO SCH (09:04)
[2025-04-22] MEDS: DOCUSATE SODIUM 100 MG CAPSULE PO SCH (09:04)
[2025-04-22] MEDS: MORPHINE 4 MG/ML 1 ML VIAL IV PRN (12:21)
[2025-04-22 18:46] LABS: PLATELET COUNT, AUTOMATED 227 10^3/uL (150-450)
[2025-04-22] MEDS: ONDANSETRON 4MG 2ML VIAL IV PRN (20:05)
[2025-04-23 04:00] VITALS: BP 173/102; TEMP 99; O2SAT 99
[2025-04-23 04:15] VITALS: BP 165/94
[2025-04-23 06:55] LABS: PLATELET COUNT, AUTOMATED 232 10^3/uL (150-450)
[2025-04-23 07:27] LABS: ALT/SGPT 53 U/L (7.0-40); AST/SGOT 92 U/L (<34); CALCIUM LEVEL 8.5 MG/DL (8.5-10.1); CARBON DIOXIDE LEVEL 32 MMOL/L (20-31); CHLORIDE LEVEL 95 MMOL/L (98-107); CREATININE FOR GFR 0.91 MG/DL (0.70-1.30); GLOMERULAR FILTRATION RATE > 90.0 (>60); MAGNESIUM LEVEL 1.2 MG/DL (1.8-2.4); POTASSIUM SERUM 3.2 MMOL/L (3.5-5.1); SODIUM LEVEL 138 MMOL/L (136-145)
[2025-04-23 08:00] VITALS: BP 156/100; TEMP 98.8; O2SAT 97
[2025-04-23 09:02] VITALS: BP 162/98
[2025-04-23 10:04] VITALS: BP 162/98
[2025-04-23] MEDS: MAGNESIUM OXIDE 400 MG TAB PO SCH (10:04)
[2025-04-23] MEDS: METOPROLOL TART 50 MG TAB PO SCH (10:04)
[2025-04-23 11:52] VITALS: BP 142/90; TEMP 98.7; O2SAT 99
[2025-04-23] MEDS ORDERED: ONDA-282 PO (14:35)
[2025-04-23] MEDS ORDERED: LOPR1TAB6 PO (14:35)
[2025-04-24] MEDS ORDERED: OMEPRAZOLE 20MG CAP PO SCH (09:00)
[2025-04-27 12:52] LABS: LYME TOTAL ANTIBODY CIA <= 0.90 Index (<=0.90)
== END 2025-04-23 14:50 | disposition home or self-care (01) ==
LOC: M ED 16:40 → M ED INP 16:41 → M MS4PR 04-22 01:52
PROVIDERS: ADMIT Student in an Organized Health Care Education/Training Program; ATTEND Student in an Organized Health Care Education/Training Program
DX: E86.0 Dehydration (principal); I10 Essential (primary) hypertension; G40.909 Epilepsy, unspecified, not intractable, without status epilepticus; G47.33 Obstructive sleep apnea (adult) (pediatric); F32.A Depression, unspecified; Z87.820 Personal history of traumatic brain injury; E87.3 Alkalosis; E87.20 Acidosis, unspecified; E87.6 Hypokalemia; E83.42 Hypomagnesemia; R74.01 Elevation of levels of liver transaminase levels; Z79.899 Other long term (current) drug therapy; Z88.0 Allergy status to penicillin; Z88.8 Allergy status to other drugs, medicaments and biological substances; F10.90 Alcohol use, unspecified, uncomplicated
CPT/HCPCS: 36415; 70450; 80053; 80143; 80307; 81001; 82077; 82140; 82248; 82550; 82803; 83605; 83735; 83930; 84443; 84550; 85025; 85027; 85652; 86140; 86618; 93005; 93041; 94760; 96365; 96366; 96372; 96375; 96376; 97161; 97166; 97535; 99285; J0131; J1650; J2405; J2470; J3475